=== PATIENT | female | born 1990 | race Caucasian/White ===

== ENCOUNTER → 2017-02-06 | Outpatient (REF) | payer OTHER | LOC: M SFHCLERA 09:34 | PROVIDERS: ATTEND Nurse Practitioner Family | DX: J02.9 Acute pharyngitis, unspecified (principal) ==

== ENCOUNTER → 2017-02-19 | Outpatient (REF) | payer OTHER | LOC: M LAB REF 21:09 | PROVIDERS: ATTEND Physician Assistant | DX: R30.0 Dysuria (principal) ==